=== PATIENT | female | born 2000 | race Caucasian/White ===

== ENCOUNTER 2025-03-03 09:12 | Emergency (ER) | payer OTHER, SELFPAY ==
[2025-03-03 09:19] VITALS: BP 130/85; PULSE 90; RESP 16; TEMP 36.4; O2SAT 100
--- NOTE | 2025-03-03 10:07 | ED_ITS ---
HPI - Ear Problem General Chief complaint: Ear Stated complaint: Ear Pain Source: patient Mode of arrival: ambulatory Limitations: no limitations History of Present Illness HPI Narrative: Pt presents for evaluation of right sided ear pain. Symptom onset one week ago. She denies any fever, chills, sore throat, cough, SOB, tinnitus, hearing loss or drainage from the ear. No recent sick contacts to her knowledge. She does not smoke. Related Data Home Medications ?Medication ?Instructions ?Recorded ?Confirmed ?Last Taken ?Type albuterol sulfate 90 mcg/actuation 1 puff inhalation Q 4H PRN 10/24/19 11/02/24 Unknown History aerosol inhaler (ProAir HFA) hydrocortisone 1 % topical ointment 1 applic topical B ID 09/21/24 11/02/24 U nknown History clobetasol 0.05 % topical ointment 1 applic topical BI D PRN 11/02/24 11/02/24 Unknown History dupilumab 300 mg/2 mL subcutaneous 300 mg subcut .ever y other week 01/18/25 Unknown History pen injector (Dupixent) drospirenone 3 mg-ethinyl tablet 03/03/25 Unknown His tory estradiol 0.02 mg tablet Allergies Allergy/AdvReac Type Severity Reaction Status Date / Time No Known Allergies Allergy Mild Verified 03/03/25 09:22 Review of Systems Review of Systems: CONSTITUTIONAL: Denies fever, chills, or sweats. EYES: Denies visual changes, redness, or discharge. ENT: Reports right sided ear pain. Denies tinnitus, hearing loss, drainage from the ears, rhinorrhea, congestion, or sore throat CARDIOVASCULAR: Denies chest pain, palpitations, or edema. RESPIRATORY: Denies cough or dyspnea. GASTROINTESTINAL: Denies abdominal pain, nausea, vomiting, or diarrhea. GENITOURINARY: Denies dysuria or hematuria. SKIN: Denies rash or itching. MUSCULOSKELETAL: Denies back pain, joint pain, or myalgia. NEUROLOGIC: Denies headache, numbness, dizziness, or weakness. PSYCHIATRIC: Denies anxiety or depression. [facility] Past Medical History Medical History Exercise induced bronchospasm Surgical History Surgical History No pertinent past surgical history Family History Family History Other Autoimmune disease Social History Social History Social History: Smoking status: Never smoker Second hand tobacco smoke exposure: No Alcohol intake: never Substance use: never Substance use type: does not use Lack of Transportation: No Lack of Food: Never True Current Housing: I Have Housing Concerned About Future Housing: No Difficulty Paying Gas/Electric Bills: No Difficulty Paying for Meds: No Currently Unemployed: No Education: Bachelor's Degree Difficulty w/ Childcare or Family Care: No Living arrangements: with family Occupation/Education: occupation Additional occupation/education comments: RN Gender identity (if verbalized by the patient): Female Sexual Orientation (if Verbalized by the Patient): Straight or Heterosexual Exam Narrative: GENERAL: Well-appearing, well-nourished, and in no acute distress. HEAD: Normocephalic, atraumatic. EYES: PERRLA and EOMI. ENT: Nares clear, no rhinorrhea or epistaxis. Mucous membranes moist. Oropharynx without tonsillar hypertrophy exudate or other lesions. left tympanic membrane is pearly leal. Right tympanic membrane is erythematous and there is yellow exudate behind the TM. There is erythema in the right ear canal NECK: Supple. No adenopathy or masses. No carotid bruits or JVD CHEST: Clear to auscultation. No respiratory distress. No wheezes rales or rhonchi HEART: Regular rate and rhythm. No murmur heard. Normal peripheral pulses. ABDOMEN: Soft, nontender, nondistended, normal active bowel sounds. EXTREMITIES: Normal range of motion. No edema. SKIN: Warm, dry, no rash. NEURO: No focal deficits. Alert and oriented x3. PSYCH: Normal mood and affect. Course Course Emergency Course: this is a 24-year-old female who presented for evaluation of right-sided ear pain. She has evidence of otitis media and externa on exam. Will treat with Augmentin and ofloxacin. Increase hydration. [id number] agents for symptom management. Follow up with primary provider. Go to the ER for worsening symptoms. Patient in agreement with plan of care. Level of Care: Express Care Visit Vital Signs Vital signs: Vital Signs Temperature 36.4 C L 03/03/25 09:19 Pulse Rate 90 03/03/25 09:19 Respiratory Rate 16 03/03/25 09:19 Blood Pressure 130/85 03/03/25 09:19 Pulse Oximetry 100 03/03/25 09:19 Temperature 36.4 C L 03/03/25 09:19 Pulse Rate 90 03/03/25 09:19 Respiratory Rate 16 03/03/25 09:19 Blood Pressure 130/85 03/03/25 09:19 Pulse Oximetry 100 03/03/25 09:19 MDM Differential Diagnosis Differential Diagnosis: Otitis media with or without perforation of the tympanic membrane versus otitis externa versus foreign body in the right ear verses other Discharge Plan Discharge Clinical Impression: Acute otitis media, right, Acute otitis externa of right ear Patient Disposition: Home Condition: Stable Instructions: Antibiotic Form, Ear Infection (GEN) Patient Language: Jordanian Prescriptions: New amoxicillin-pot clavulanate 875-125 mg tablet 1 tablet PO Q12H Qty: 20 0RF ofloxacin 0.3 % drops 10 drp RIGHT EAR DAILY 7 Days Qty: 10 0RF No Action drospirenone-ethinyl estradiol 3-0.02 mg tablet hyoscyamine sulfate 0.125 mg tablet 0.125 mg PO QID PRN (Reason: dyspepsia) Qty: 60 0RF hydrocortisone 1 % ointment 1 applic topical BID albuterol sulfate [ProAir HFA] 90 mcg/actuation HFA aerosol inhaler 1 puff INHALATION Q4H PRN clobetasol 0.05 % ointment 1 applic topical BID PRN Dupixent Pen 300 mg/2 mL pen injector 300 mg subcut .every other week Follow-up/Referrals: Allison Miller MD [Primary Care Provider, Family Practice] Time of Disposition: 10:06
== END 2025-03-03 10:09 | disposition home or self-care (01) ==
PROVIDERS: Emergency Provider Nurse Practitioner; PCP Family Medicine
DX: H66.91 Otitis media, unspecified, right ear (principal); H60.91 Unspecified otitis externa, right ear; J45.990 Exercise induced bronchospasm
CPT/HCPCS: 99213; G0463

== ENCOUNTER 2025-03-09 09:26 | Outpatient (CLI) | payer OTHER, SELFPAY ==
[2025-03-09 10:15] LABS: Influenza A QL RT-PCR Negative (Negative); Influenza B QL RT-PCR Negative (Negative); RSV RNA, RT-PCR Negative (Negative); SARS-CoV-2 RNA PCR Positive (Negative)
== END 2025-03-09 09:27 | disposition home or self-care (01) ==
PROVIDERS: PCP Family Medicine
DX: U07.1 COVID-19 (principal); J06.9 Acute upper respiratory infection, unspecified
CPT/HCPCS: 87637